=== PATIENT | male | born 1980 | race Caucasian/White ===

== ENCOUNTER 2021-03-09 15:46 | Inpatient (IN) | payer OTHER ==
[2021-03-09] VITALS (11 sets, daily range): BP systolic 111–134; BP diastolic 77–92
[~2021-03-09] VITALS: Ht 185.4 cm; Wt 99.8 kg
--- NOTE | ~2021-03-09 | H ---
[facility] [place] [address] HISTORY AND PHYSICAL Name: SHARON ESCAMILLA Room #: 160-1 ADM IN M.R.#: [id number] Admission: 03/09/21 Attend Phys: Dayton Willingham MD, Discharge: Date of : 78 Report #: [id number] THIS REPORT FOR: cc: FAM - No family physician/PCP FAM - No family physician/PCP Dayton Willingham MD [facility] ~ DATE OF SERVICE: 03/09/2021 HISTORY OF PRESENT ILLNESS: The patient is a 40-year-old male who presents with some stuttering chest pain which initiated yesterday while watching the training camp and then subsequently felt some discomfort this morning and associated with some mild shortness of breath. ____ some mild diaphoresis. He has not really noticed much in the way of any prior symptoms. He is a pack a day smoker and has a family history of premature coronary artery disease involving a grandfather who is relatively young and is around 50 with an acute coronary syndrome. He is otherwise active. 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 He is , with 4 children. Social alcohol. The only medication is Nexium. MEDICATIONS: Nexium. PAST MEDICAL HISTORY: Positive for reflux and finger surgery. No history of hypertension or hypercholesterolemia. SOCIAL HISTORY: He is . 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 Social drinker, pack a day smoker. Four children alive and well. FAMILY HISTORY: Grandfather had premature coronary artery disease. REVIEW OF SYSTEMS: Essentially negative except for stated above. PHYSICAL EXAMINATION: VITAL SIGNS: Pulse is 50s, blood pressure 140/86. HEENT: Eyes reveal xanthelasmas. Pharynx is clear. NECK: Shows preserved upstrokes without JVD or bruits. LUNGS: Clear. HEART: Regular rate and rhythm, S1, S2, without murmur or gallop. ABDOMEN: Soft. No HSM, abdominal bruit. EXTREMITIES: Reveal no edema. Pulses are intact. NEUROLOGIC: Nonfocal. SKIN: Warm and dry without xanthoma or ulcer. MUSCULOSKELETAL: No gross joint deformity. ASSESSMENT: 1. Acute stuttering and inferior wall myocardial infarction with subtle ST elevation on third EKG (with slight troponin elevation 1.29). [address] [address] HISTORY AND PHYSICAL Name: SHARON ESCAMILLA Room #: 160-1 ADM IN M.R.#: [id number] Admission: 03/09/21 Attend Phys: Dayton Willingham MD, Discharge: Date of : 78 Report #: [id number] 2. History of tobacco use. 3. Family history of premature coronary artery disease. RECOMMENDATIONS AND PLAN: Aspirin, heparin bolus and Lipitor 80 have been given. The patient is relatively pain free at this point. We will proceed to the catheterization lab emergently for intervention. Risks, benefits and alternatives were discussed with the patient and his . There is a primary care office in [place], he sees. Thank you for assisting in care of this patient. By: 1650 1728 Dayton Willingham MD, FACC /nt
[2021-03-09 16:31] LABS: ABSOLUTE NEUTROPHILS 5.3 thou/uL (1.4-8.2); BASOPHILS 0.4 % (0.0-2.0); EOSINOPHILS 3.4 % (0.0-3.0); HEMATOCRIT 42.6 % (42.0-52.0); HEMOGLOBIN 14.5 gm/dL (14.0-18.0); LYMPHOCYTES 34.6 % (24.0-44.0); MCH 27.3 pg (26.0-34.0); MCV 80.3 fL (80.0-100.0); MONOCYTES 8.8 % (1.0-8.0); PLATELET COUNT 295 thou/uL (150-400); POLYS 52.8 % (36.0-66.0); RDW 14.3 % (10.5-14.5); WBC 10.1 thou/uL (4.0-11.0)
[2021-03-09 16:44] LABS: CALCIUM 8.9 mg/dL (8.5-10.1); CREATININE 0.9 mg/dL (0.7-1.3); POTASSIUM 4.1 mmol/L (3.5-5.1)
[2021-03-09 17:05] LABS: TROPONIN-I 1.29 ng/mL (<0.06)
[2021-03-09] MEDS ORDERED: NEXIUM 40 MG CA40 M1 PO (22:13)
[2021-03-10 00:20] VITALS: BP 115/65
[2021-03-10 04:45] VITALS: BP 118/68
[2021-03-10 05:17] LABS: CHOLESTEROL 165 mg/dL (<200); HDL CHOLESTEROL 24 mg/dL (>40); LDL CHOLESTEROL 106 mg/dL (<100); SERUM ASSESSMENT Clear; TC:HDL 6.9 Ratio (Not establshd); TRIGLYCERIDE 176 mg/dL (<150); VLDL 35 mg/dL (<40)
[2021-03-10 05:18] LABS: TROPONIN-I 4.12 ng/mL (<0.06)
--- NOTE | 2021-03-10 07:39 | NUR ---
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 NO C/O CHEST PAIN. RIGHT GROIN CATH SITE C/D/I WITHOUT HEMATOMA PRESENT. VSS. AFEBRILE. PT SLEPT MOST OF THE NIGHT. RESPIRATIONS EVEN AND UNLABORED. NO MAJOR COMPLAINTS DURING THE NIGHT. PROGRESSING TOWARD POC GOALS. REPORT GIVEN TO DAY SHIFT RN.
--- NOTE | 2021-03-10 07:47 | EKG ---
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1980 Requested By: Grey Prieto Order Number: [id number] MD: Eliel Moffett Measurements Intervals [place] Rate: 71 P: 0 WV: 69 QRS: 51 QRSD: 88 T: 31 QT: 402 QTc: 437 Interpretive Statements Sinus rhythm Multiple ventricular premature complexes Short WV interval ST elev, probable normal early repol pattern No previous ECG available for comparison Electronically Signed On 03-10-2021 7:47:30 CDT by Eliel Moffett [email or web address] <ELECTRONICALLY SIGNED> By: Eliel Moffett MD, [facility] 03/10/21 0747 1622 1622 Eliel Moffett MD, FACC /EPI
--- NOTE | 2021-03-10 07:47 | EKG ---
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 In: : 1980 Requested By: Erik Cavazos Order Number: [id number] : Eliel Moffett Measurements Intervals [place] Rate: 66 P: 61 OR: 179 QRS: 57 QRSD: 88 T: 25 QT: 382 QTc: 401 Interpretive Statements Sinus rhythm Multiple ventricular premature complexes Probable left atrial enlargement No previous ECG available for comparison Electronically Signed On 03-10-2021 7:47:28 CDT by Eliel Moffett [email or web address] <ELECTRONICALLY SIGNED> By: Eliel Moffett MD, [facility] 03/10/21 0747 1548 1548 Eliel Moffett MD, FACC /EPI
--- NOTE | 2021-03-10 07:48 | EKG ---
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 : 1980 Requested By: Erik Cavazos Order Number: [id number] MD: Eliel Moffett Measurements Intervals [place] Rate: 56 P: -80 ND: 145 QRS: 48 QRSD: 85 T: 28 QT: 410 QTc: 396 Interpretive Statements Ectopic atrial rhythm Compared to ECG 03/09/2021 16:22:55 Ectopic atrial rhythm now present Sinus rhythm no longer present Ventricular premature complex(es) no longer present Short ND interval no longer present ST (T wave) deviation no longer present Electronically Signed On 03-10-2021 7:48:04 CDT by Eliel Moffett [email or web address] <ELECTRONICALLY SIGNED> By: Eliel Moffett MD, FACC 03/10/21 0748 1715 1715 Eliel Moffett MD, [facility] /EPI
[2021-03-10 08:00] VITALS: BP 125/75
[2021-03-10] MEDS ORDERED: ASA81BEC PO (08:16)
[2021-03-10] MEDS ORDERED: LIPITOR 20 MG T20 M1 PO (08:16)
[2021-03-10] MEDS ORDERED: NORVASC 2.5 MG2.5 MG PO (08:16)
[2021-03-10 09:55] VITALS: BP 125/75
--- NOTE | 2021-03-10 11:42 | NUR ---
ASSUMED CARE SHIFT CHANGE. VSS DENIES PAIN. R GROIN CDI NO HEMATOMA. QUESTIONS ANSWERED REGARDING POST CATH. DC ORDERS. DISCUSSED WITH PT AND [employer] UNDERSTANDING. TELE REMOVED .IV REMOVED. PT LEFT UNIT WITH [facility].
--- NOTE | 2021-03-10 12:02 | 2DMMODE ---
[facility] [place] [address] 2 D/M-MODE ECHOCARDIOGRAM Name: SHARON ESCAMILLA Room #: 218-P ADM IN M.R.#: [id number] Admission: 03/09/21 Attend Phys: Dayton Willingham MD, Discharge: Date of : 78 Report #: [id number] THIS REPORT FOR: cc: NAIMA - Justyna family physician/PCP FAM - No family physician/PCP Dayton Willingham MD [facility] ~ APPROVED REPORT Study performed: 03/10/2021 09:47:43 EXAM: Comprehensive 2D, Doppler, and color-flow Echocardiogram Patient Location: In-Patient Room #: 218 Status: routine BSA: 2.22 HR: 71 bpm BP: 125/75 mmHg Rhythm: NSR Other Information Study Quality: Good Indications Elevated Troponin 2D Dimensions RVDd: 33.21 mm IVSd: 10.51 (7-11mm) LVOT Diam: 23.15 (18-24mm) LVDd: 50.30 mm PWd: 11.99 (7-11mm) Ascending Ao: 35.82 (22-36mm) LVDs: 32.60 (25-40mm) Left Atrium: 37.41 (27-40mm) Aortic Root: 36.45 mm Volumes Left Atrial Volume (Systole) Single Plane 4CH: 42.89 mL Single Plane 2CH: 55.33 mL Biplane LA Volume: 57.00 mL LA ESV Index: 26.00 mL/m2 Aortic Valve AoV Peak Josué.: 1.22 m/s AO Peak Gr.: 6.68 mmHg LVOT Max P.07 mmHg LVOT Max V: 1.01 m/s ELIECER Vmax: 3.47 cm2 [facility] [employer] [address] [place] [address] 2 D/M-MODE ECHOCARDIOGRAM Name: SHARON ESCAMILLA Room #: 218-[facility]#: [id number] Admission: 03/09/21 Attend Phys: Dayton Willingham, Discharge: Date of : 78 Report #: [id number] Mitral Valve E/A Ratio: 1.1 MV Decel. Time: 1391.27 ms MV E Max Josué.: 0.41 m/s MV A Josué.: 0.37 m/s MV PHT: 403.47 ms IVRT: 101.50 ms Pulmonary Valve PV Peak Joséu.: 0.85 m/s PV Peak Gr.: 2.91 mmHg Pulmonary Vein P Vein S: 0.57 m/s P Vein A: 0.22 m/s P Vein D: 0.42 m/s P Vein A Dur.: 101.5 msec P Vein S/D Ratio: 1.36 Tricuspid Valve TR Peak Josué.: 1.76 m/s RAP Estimate: 7.00 mmHg TR Peak Gr.: 12.37 mmHg RVSP: 19.00 mmHg Left Ventricle The left ventricle is normal size. There is normal LV segmental wall motion. There is normal left ventricular wall thickness. Left ventricular systolic function is normal. The left ventricular ejection fraction is within the normal range. LVEF is 60-65%. The left ventricular diastolic function is normal. Right Ventricle The right ventricle is normal size. The right ventricular systolic function is normal. Atria The left atrium size is normal. The right atrium size is normal. Aortic Valve The aortic valve is normal in structure. No aortic regurgitation is present. There is no aortic valvular stenosis. Mitral Valve The mitral valve is normal in structure. There is no mitral valve regurgitation noted. No evidence of mitral valve stenosis. Tricuspid Valve The tricuspid valve is normal in structure. Trace tricuspid [facility] [address] [place] [address] 2 D/M-MODE ECHOCARDIOGRAM Name: SHARON ESCAMILLA Room #: 218-P ADM IN M.R.#: [id number] Admission: 03/09/21 Attend Phys: Dayton Willingham, Discharge: Date of : 78 Report #: [id number] regurgitation. PAP 19 mmHg. Pulmonic Valve The pulmonary valve is normal in structure. There is no pulmonic valvular regurgitation. Great Vessels The aortic root is normal in size. IVC is normal in size and collapses >50% with inspiration. Pericardium There is no pericardial effusion. There is no pleural effusion. <Conclusion> The left ventricle is normal size. LVEF is 60-65%. The left ventricular diastolic function is normal. The right ventricle is normal size. The left atrium size is normal. The aortic valve is normal in structure. There is no mitral valve regurgitation noted. Trace tricuspid regurgitation. PAP 19 mmHg. The aortic root is normal in size. There is no pericardial effusion. <ELECTRONICALLY SIGNED> By: Dayton Willingham MD, FACC 03/10/21 120 120 01 Dayton Willingham MD, FACC /INF
--- NOTE | 2021-03-11 17:26 | CATHLAB ---
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 A PINNACLE 6FR Sheath #[id number] sheath was inserted into the RFA^. Coronary angiography was performed using coronary diagnostic catheters. The right coronary system was accessed and visualized with a JR4 catheter. The left coronary system was accessed and visualized with a JL4 catheter. The left ventricle was accessed and visualized with a STR PIG catheter. The patient tolerated the procedure well and there were no complications associated with the procedure. There was no hematoma. Intraoperative Conscious Sedation Sedation start time: 1751 Case end Time: 1824 Fentanyl 100 mcg Versed 2 mg Fluoro Time: 1.25 minutes [facility] [address] [place] [address] INVASIVE PROCEDURE REPORT Name: SHARON KING Room #: 218-[facility] IN M.R.#: [id number] Admission: 03/09/21 Attend Phys: Dayton Willingham, Discharge: 03/10/21 Date of : 78 Report #: [id number] Dose: DAP 2614.80 cGycm2 288 mGy Contrast Type and Amount: Omnipaque 87 ml Hemodynamics The left ventricular pressure is 121/5 mmHg with a mean of mmHg. The left ventricular end diastolic pressure is 7 mmHg. Conclusion #1 Normal left ventricular size and systolic function EF 60%. No wall motion abnormality. #2 abdominal aortogram reveals normal caliber abdominal aorta no evidence of aneurysm or stenosis. #3 left main free of disease giving rise to LAD and circumflex. #4 LAD extends to the apex there is no occlusive disease. Diagonal system also widely patent. #5 nondominant circumflex is moderate distribution and size no occlusive disease. #6 dominant right coronary artery with no occlusive disease or significant irregularity. Recommendations and plan: Continue aggressive risk factor modification. There is no indication for coronary intervention. It is not clear as the etiology of the subtle ST elevation on the EKG and the slight troponin elevation. I do not see evidence of previous lysed clot or vasospasm on this exam. Patient is pain-free and hemodynamically stable upon transfer back to the CCU. <ELECTRONICALLY SIGNED> By: Dayton Willingham MD, [facility] 03/11/211724 24 24 Dayton Willingham MD, FACC /INF
== END 2021-03-10 11:45 | disposition home or self-care (01) | DRG 282 ==
LOC: ER 15:46 → TBACV 17:44 → 2N 17:44
PROVIDERS: Nurse Practitioner; ADMIT Internal Medicine Cardiovascular Disease; ATTEND Internal Medicine Cardiovascular Disease
DX: I21.19 ST elevation (STEMI) myocardial infarction involving other coronary artery of inferior wall (principal); K21.9 Gastro-esophageal reflux disease without esophagitis; I25.111 Atherosclerotic heart disease of native coronary artery with angina pectoris with documented spasm; E78.5 Hyperlipidemia, unspecified; F17.210 Nicotine dependence, cigarettes, uncomplicated; Z20.822 Contact with and (suspected) exposure to COVID-19; Z72.89 Other problems related to lifestyle
CPT/HCPCS: 10081

== ENCOUNTER → 2021-03-16 | Outpatient (CLI) | payer OTHER ==
[~2021-03-16] MED LIST: ASA81BEC PO; LIPITOR 20 MG T20 M1 PO; NEXIUM 40 MG CA40 M1 PO; NORVASC 2.5 MG2.5 MG PO
== END ==
LOC: SJCVCIMAG 11:05
PROVIDERS: ATTEND Internal Medicine Cardiovascular Disease
DX: R19.09 Other intra-abdominal and pelvic swelling, mass and lump (principal); R10.30 Lower abdominal pain, unspecified; L98.8 Other specified disorders of the skin and subcutaneous tissue; Z79.82 Long term (current) use of aspirin; Z79.899 Other long term (current) drug therapy